=== PATIENT | female | born 1935 | race Caucasian/White ===

== ENCOUNTER → 2016-11-13 | Day surgery (SDC) | payer MEDICARE, OTHER ==
[~2016-11-13] MED LIST: ACETAMINOPHEN/HYDROcodone 325 MG/5 MG TAB ONE; APREPITANT 40 MG CAP ONE; B COTAB3 PO; GABA100C4 PO; HYDR10TA16 PO; IOHEXOL 180 MG/ML 20 ML VIAL (for RAD DIAG) ONE; KETOROLAC TROMETHAMINE 30 MG/ML (IVP) VIAL IV PUSH ONE; LACTATED RINGER'S 1000 ML INJ 1,000 ML ONE; MAGN250T13 PO; MIDAZOLAM HCL 2 MG/2 ML VIAL ONE; ONDANSETRON HCL 4 MG/2 ML VIAL IV PUSH ONE; PROPOFOL 200 MG/20 ML AMP IV ONE; TARTCAP PO; TYLE500T PO; VITA400C28 PO; ceFAZolin 2 GM PREMIX 50 ML ONE
--- NOTE | 2016-11-13 11:11 | TN ---
cc: AYAD CARPENTER M.D. DATE OF SURGERY 11/13/2016 PREOPERATIVE DIAGNOSIS Compression fracture of T11-T12 acute, subacute. POSTOPERATIVE DIAGNOSIS Compression fracture of T11-T12 acute, subacute. PROCEDURE Kyphoplasty of T11 and T12 and placement of a bone cement spacer. SURGEON Ayad Carpenter MD ANESTHESIA TIVA ESTIMATED BLOOD LOSS Minimal INDICATION This is an 81-year-old female who has had progressive kyphotic deformity and pain in her back over a seven-month period time. Around , it became so severe she saw her primary care physician. He ordered an MRI scan of her lumbar spine showing evidence of recent fractures at T11 and T12. The patient saw me in consultation initially on 11/05/2016. Despite nearly six weeks of conservative care since and almost seven months of pain, the patient now presents for kyphoplasty of T11-T12 level. PROCEDURE The patient was brought to the operating and given limited sedation. She was rolled to a prone position on the radiolucent table. All pressure points were protected. The back was scrubbed with alcohol, followed by Hibiclens, followed by Chloraprep and draped sterilely. Antibiotics were given within a one hour time window and a time-out was done. A single balloon approach from the right side at T11, a single balloon from the left side at T12 was utilized. A sequence of local anesthesia, a small incision and an awl placed through the pedicle followed by placement of a 15 mm Kyphon balloon was performed. We had good correction of the cephalad endplate at T11 and minimal change at the T12 level. On the back table, methacrylate was mixed and after approximately 11-12 minutes was injected. We could not perceive with any significant extravasation. The cement was allowed to harden. The tubes were removed. Intraoperative x-rays were obtained. The wound was irrigated and anesthetized closed with 4-0 Vicryl followed by Dermabond. The patient was awakened and taken to recovery in satisfactory condition. MD RADAMES Dupont/NAOMI /10:58 AM /11:05 AM
--- NOTE | 2016-11-13 11:31 | RADRPT ---
EXAM DATE/TIME: 11/13/2016 10:44 [facility] COMPARISON: No previous studies available for comparison. INDICATIONS : Thoracic spine T11-12 kyphoplasty. OR. MEDICAL HISTORY : None. SURGICAL HISTORY : Fusion, lumbar. Kyphoplasty. ENCOUNTER: Initial ACUITY: 1 day PAIN SCORE: Non-responsive. LOCATION: Thoracic T11-12 FINDINGS: There is evidence of previous kyphoplasty at T12 level there is previous kyphoplasty at L1. No cement extravasation is seen. CONCLUSION: 1. Postsurgical changes as above. Carlos Ramos MD on November 13, 2016 at 11:29 Board Certified Radiologist. This report was verified electronically.
== END | disposition home or self-care (01) ==
LOC: ESDC 08:40
PROVIDERS: ATTEND Orthopaedic Surgery Orthopaedic Surgery of the Spine
DX: S22.080A Wedge compression fracture of T11-T12 vertebra, initial encounter for closed fracture (principal)
CPT/HCPCS: 01936; 22513; 22515; 72070; J0690; J1885; J2250; J2405; J3010; J7120; J8501; Q9965